=== PATIENT | female | born 1960 ===

== ENCOUNTER 2024-02-26 20:12 | Emergency (ER) ==
[2024-02-26 20:47] LABS: #Basophils 0.03 10x3/uL (0.0-0.2); %Monocytes 9.7 % (0.0-10.0); %Neutrophils 42.3 % (42.0-75.0); Hematocrit 38.3 % (36.0-47.0); Hemoglobin 12.1 g/dL (12.0-16.0); Mean Corpuscular HGB CONC 31.6 g/dL (32.0-36.0); Mean Corpuscular Hemoglobin 30.3 pg (27.0-31.0); Mean Corpuscular Volume 95.8 fL (78.0-98.0); Platelet Count 163 10x3/uL (130-400); RBC Distribution Width 14.5 % (11.5-14.5)
[2024-02-26 21:04] LABS: ALT (SGPT) 15 U/L (8-55); AST (SGOT) 29 U/L (5-34); Albumin 4.2 g/dL (3.4-4.8); Alkaline Phosphatase 103 U/L (40-110); Anion Gap 13 mmol/L (10-20); BUN (Urea Nitrogen) 19 mg/dL (9.8-20.1); Bilirubin, Total 0.3 mg/dL (0.2-1.2); Calc. Creatinine Clearance 0 mL/min (70-130); Calcium 9.6 mg/dL (7.8-10.44); Carbon Dioxide 29 mmol/L (23-31); Chloride 104 mmol/L (98-107); Estimated GFR 78; Globulin 2.9 g/dL (2.4-3.5); Glucose 85 mg/dL (80-115); Potassium 4.3 mmol/L (3.5-5.1); Protein, Total 7.1 g/dL (5.8-8.1); Sodium 142 mmol/L (136-145)
[2024-02-26 21:09] LABS: Troponin I Less than 0.010 ng/mL (< 0.028)
== END 2024-02-26 21:52 | disposition home or self-care (01) ==
LOC: ERS 20:12
DX: R07.9 Chest pain, unspecified (principal); R00.2 Palpitations
CPT/HCPCS: 36415; 71045; 80053; 84484; 85025; 93005